=== PATIENT | female | born 1960 | race Caucasian/White ===

== ENCOUNTER 2017-09-29 12:50 | Emergency (ER) | payer OTHER ==
[~2017-09-29 12:50] MED LIST: ATIVAN1 MG PO; COL100 PO; NOR10T PO
[2017-09-29 14:08] LABS: BASOPHIL % 0.3 % (0-2); PLATELET COUNT 247 x10^3mcL (130-400)
[2017-09-29 14:12] LABS: RED CELL DISTRIBUTION WIDTH 15.2 % (11.5-14.5)
[2017-09-29 14:16] LABS: CALCIUM 9.7 mg/dL (8.5-10.1); CARBON DIOXIDE 32.9 mmol/L (21-32); CHLORIDE SERUM 104 mmol/L (98-107); CREATININE SERUM 0.6 mg/dL (0.6-1.0); GFR1 > 60 mL/min; GLUCOSE SERUM 83 mg/dL (74-106); POTASSIUM SERUM 3.8 mmol/L (3.5-5.1); SODIUM SERUM 140 mmol/L (136-145)
[2017-09-29 14:21] LABS: ALKALINE PHOSPHATASE 89 U/L (46-116); ALT/SGPT 39 U/L (14-59); AST/SGOT 78 U/L (15-37); BILIRUBIN TOTAL 0.3 mg/dL (0.20-1.00); CHOLESTEROL 160 mg/dL (<200); CHOLESTEROL/HDL RATIO 2.9; HDL CHOLESTEROL 55 mg/dL (40-60); LIPASE 131 IU/L (73-393); TOTAL PROTEIN, SERUM 7.3 g/dL (6.4-8.2); TRIGLYCERIDES 35 mg/dL (<150)
[2017-09-29 14:24] LABS: ALBUMIN 2.5 g/dL (3.4-5.0)
[2017-09-29 14:31] LABS: FREE T4 1.51 ng/dL (0.76-1.46); T3 TOTAL 1.46 ng/mL; T4(THYROXINE) 13.3 ug/dL (4.7-13.3)
[2017-09-29 15:35] LABS: microscopic required? YES; urine erythrocyte TRACE (NEGATIVE)
[2017-09-29 18:03] VITALS: BP 136/83
== END 2017-09-29 18:03 | disposition home or self-care (01) ==
LOC: ED 12:50
PROVIDERS: Specialist
DX: R06.02 Shortness of breath (principal); R91.8 Other nonspecific abnormal finding of lung field; Z85.3 Personal history of malignant neoplasm of breast
CPT/HCPCS: 36600; 83880; 84439; J7030; Q9967

== ENCOUNTER 2018-02-20 12:10 | Inpatient (IN) | payer OTHER ==
[~2018-02-20] VITALS: Ht 154.9 cm; Wt 50.1 kg
[2018-02-20 13:13] LABS: RED CELL DISTRIBUTION WIDTH 13.2 % (11.5-14.5)
[2018-02-20 13:17] LABS: PLATELET COUNT 24 x10^3mcL (130-400)
[2018-02-20 13:37] LABS: CALCIUM 9.1 mg/dL (8.5-10.1); CARBON DIOXIDE 29.2 mmol/L (21-32); CHLORIDE SERUM 99 mmol/L (98-107); CREATININE SERUM 0.5 mg/dL (0.6-1.0); GFR1 > 60 mL/min; GLUCOSE SERUM 142 mg/dL (74-106); POTASSIUM SERUM 3.6 mmol/L (3.5-5.1); SODIUM SERUM 131 mmol/L (136-145)
[2018-02-20 13:42] LABS: ALKALINE PHOSPHATASE 72 U/L (46-116); ALT/SGPT 119 U/L (14-59); AST/SGOT 72 U/L (15-37); BILIRUBIN TOTAL 0.2 mg/dL (0.20-1.00); TOTAL PROTEIN, SERUM 7.1 g/dL (6.4-8.2)
[2018-02-20 13:47] LABS: ALBUMIN 2.9 g/dL (3.4-5.0)
[2018-02-20 14:43] LABS: BAND NEUTROPHIL 0 % (0-10); BASOPHIL 0 % (0-2); MONOCYTE 6 % (0-7); SEGMENTED NEUTROPHILS 56 % (37-75)
[2018-02-20 14:44] LABS: rbc morphology (normal/abnorm) ABNORMAL (NORMAL)
[2018-02-20 15:41] LABS: MAGNESIUM 1.6 mg/dL (1.8-2.4); PHOSPHOROUS 4.2 mg/dL (2.5-4.9)
[2018-02-20 15:44] LABS: CHOLESTEROL/HDL RATIO 2.1
[2018-02-20 15:49] LABS: FREE T4 1.33 ng/dL (0.76-1.46); FREE THYROXINE INDEX 2.6 ug/dL (1.4-4.5)
[2018-02-20 16:44] VITALS: BP 111/67
[2018-02-20 16:48] VITALS: Ht 154.9 cm; Wt 50.1 kg
[2018-02-20 17:33] LABS: T3 TOTAL 1.42 ng/mL
[2018-02-20 21:03] VITALS: BP 90/56
[2018-02-21 06:02] VITALS: BP 101/63
[2018-02-21 06:04] LABS: RED CELL DISTRIBUTION WIDTH 12.7 % (11.5-14.5)
[2018-02-21 06:12] LABS: CALCIUM 8.3 mg/dL (8.5-10.1); CARBON DIOXIDE 29.5 mmol/L (21-32); CHLORIDE SERUM 104 mmol/L (98-107); CREATININE SERUM 0.5 mg/dL (0.6-1.0); GFR1 > 60 mL/min; GLUCOSE SERUM 93 mg/dL (74-106); MAGNESIUM 1.7 mg/dL (1.8-2.4); PHOSPHOROUS 3.8 mg/dL (2.5-4.9); POTASSIUM SERUM 4.2 mmol/L (3.5-5.1); SODIUM SERUM 138 mmol/L (136-145)
[2018-02-21 07:33] LABS: PLATELET COUNT 17 x10^3mcL (130-400)
[2018-02-21 09:58] LABS: BAND NEUTROPHIL 0 % (0-10); BASOPHIL 0 % (0-2); MONOCYTE 7 % (0-7); SEGMENTED NEUTROPHILS 50 % (37-75)
[2018-02-21 09:59] LABS: rbc morphology (normal/abnorm) ABNORMAL (NORMAL); tear drop cell (dacryocyte) 1+
[2018-02-21 10:02] LABS: RED BLOOD CELLS 3.02 M/mm3 (4.10-5.10)
[2018-02-21 10:38] VITALS: BP 94/57
[2018-02-21 10:39] LABS: microscopic required? NO
[2018-02-21 11:25] LABS: urine erythrocyte NEGATIVE (NEGATIVE)
[2018-02-21 11:40] LABS: AMPHETAMINE QUAL UR NONE DETECTED (NEG <=1000)
[2018-02-21 11:44] LABS: IRON 102 ug/dL (50-170); TOTAL IRON BINDING CAPACITY 260 ug/dL (250-450)
[2018-02-21 14:10] VITALS: BP 109/60
[2018-02-21 17:15] VITALS: BP 106/62
[2018-02-21 21:33] VITALS: BP 102/64
== END 2018-02-21 23:54 | disposition left against medical advice (07) | DRG 721 ==
LOC: ED 12:10 → DU 14:57
PROVIDERS: Emergency Medicine; Family Medicine
DX: T80.218A Other infection due to central venous catheter, initial encounter (principal); N17.0 Acute kidney failure with tubular necrosis; D61.810 Antineoplastic chemotherapy induced pancytopenia; E44.0 Moderate protein-calorie malnutrition; D69.59 Other secondary thrombocytopenia; E87.1 Hypo-osmolality and hyponatremia; E83.42 Hypomagnesemia; I10 Essential (primary) hypertension; L03.113 Cellulitis of right upper limb; C50.912 Malignant neoplasm of unspecified site of left female breast; F17.210 Nicotine dependence, cigarettes, uncomplicated; F41.9 Anxiety disorder, unspecified; Y83.8 Other surgical procedures as the cause of abnormal reaction of the patient, or of later complication, without mention of misadventure at the time of the procedure; R73.03 Prediabetes; Z83.49 Family history of other endocrine, nutritional and metabolic diseases; Z68.20 Body mass index [BMI] 20.0-20.9, adult; Y92.89 Other specified places as the place of occurrence of the external cause
CPT/HCPCS: 83880; 84439; 99406; J0295; J1644; J1956; J3475; J3490; J7030; Q0092; Q9967

== ENCOUNTER 2018-12-03 19:35 | Emergency (ER) | payer OTHER ==
[~2018-12-03] VITALS: Ht 154.9 cm; Wt 48.1 kg
[2018-12-03 20:05] VITALS: Ht 154.9 cm; Wt 48.1 kg
[2018-12-03 21:16] LABS: BASOPHIL % 0.1 % (0-2); PLATELET COUNT 186 x10^3mcL (130-400); RED CELL DISTRIBUTION WIDTH 18.9 % (11.5-14.5)
[2018-12-03 21:29] LABS: CALCIUM 8.8 mg/dL (8.5-10.1); CARBON DIOXIDE 29.2 mmol/L (21-32); CHLORIDE SERUM 99 mmol/L (98-107); CREATININE SERUM 0.6 mg/dL (0.6-1.0); GFR1 > 60 mL/min; GLUCOSE SERUM 164 mg/dL (74-106); POTASSIUM SERUM 3.8 mmol/L (3.5-5.1); SODIUM SERUM 131 mmol/L (136-145)
[2018-12-03 21:33] LABS: ALKALINE PHOSPHATASE 62 U/L (46-116); ALT/SGPT 23 U/L (14-59); AST/SGOT 57 U/L (15-37); BILIRUBIN TOTAL 0.4 mg/dL (0.20-1.00); TOTAL PROTEIN, SERUM 6.8 g/dL (6.4-8.2)
[2018-12-03 21:42] LABS: ALBUMIN 2.5 g/dL (3.4-5.0)
[2018-12-03 22:17] VITALS: BP 106/60
== END 2018-12-03 22:17 | disposition home or self-care (01) ==
LOC: ED 19:35
PROVIDERS: Emergency Medicine
DX: T45.1X5A Adverse effect of antineoplastic and immunosuppressive drugs, initial encounter (principal); Z85.3 Personal history of malignant neoplasm of breast; Z90.12 Acquired absence of left breast and nipple; Y92.89 Other specified places as the place of occurrence of the external cause
CPT/HCPCS: 36415

== ENCOUNTER 2019-05-17 11:23 | Inpatient (IN) | payer OTHER ==
[~2019-05-17] VITALS: Ht 152.4 cm; Wt 40.8 kg
--- NOTE | 2019-05-17 11:23 | NUR ---
RECEIVED PATIENT IN ROOM 5, VIA WHEELCHAIR, PULSELESS. PATIENT PUT IN BED, ON MONITOR, DR BEJARANO AT BEDSIDE, RT CALLED, TOOTH POLISHER AT BEDSIDE, ED RNS AT BEDSIDE. 1123: CPR INITIATED, VBM 1125: RIGHT AC 18 GAUGE INITIATED 1126: EPI X 1 GIVEN; NS FLUID WIDE OPEN 1127: HOLD CPR TO CHECK FOR PULSES - NO PULSE, B/P=55/14 1128: CPR RESUMED; ET INSERTED BY DR BEJARANO - SIZE = 10 1/2, LIPLINE = 21 1130: EPI X 1 (2ND) GIVEN, RIGHT AC; CONT CPR 1132: CHECK PULSES - PULSES PALPABLE 1134: SODIUM BICARB X 1 (50 ML) GIVEN, RIGHT AC; OS=544/76 NJ=892 REP= 12 1135: RECTAL NEJ=896.3 1139: 2ND IV INITIATED RIGHT FOREARM 20 GAUGE, LABS DRAWN 1145: VENT SETTING: AC 350. R=12 PEEP=5 81=160% 1145: MULTIPLE ATTEMPTS TO INSERT NGT/OGT BUT FAILED, NOT GOING INTO THE ESOPHAGUS/STOMACH AREA 1156: F/C SIZE 16 INSERTED, NO URINE RETURN 1205: CXR COMPLETED.
--- NOTE | 2019-05-17 11:34 | NUR ---
VS: P=168 R= 12 B/P=175/76 31=914% ON VENT: AC 350 R=12 PEEP=5 95=150%
[2019-05-17 11:45] VITALS: BP 175/76
--- NOTE | 2019-05-17 11:45 | NUR ---
VS: P=140 B/P 176/70 R=20 L1=121% ON VENT: AC 350 R=12 PEEP=5 62=951%
[2019-05-17 12:19] LABS: CARBON DIOXIDE 29.6 mmol/L (21-32); CHLORIDE SERUM 106 mmol/L (98-107); CREATININE SERUM 1.5 mg/dL (0.6-1.0); GFR1 38 mL/min; GLUCOSE SERUM 67 mg/dL (74-106); SODIUM SERUM 144 mmol/L (136-145)
[2019-05-17 12:23] LABS: ALKALINE PHOSPHATASE 46 U/L (46-116); ALT/SGPT 23 U/L (14-59); AST/SGOT 77 U/L (15-37); BILIRUBIN TOTAL 0.4 mg/dL (0.20-1.00)
[2019-05-17 12:24] LABS: ALBUMIN 2.3 g/dL (3.4-5.0); TOTAL PROTEIN, SERUM 5.9 g/dL (6.4-8.2)
[2019-05-17 12:34] LABS: PLATELET COUNT 122 x10^3mcL (130-400); RED CELL DISTRIBUTION WIDTH 18.1 % (11.5-14.5)
--- NOTE | 2019-05-17 12:46 | NUR ---
RECEIVED CRITICAL RESULTS FROM LAB, LACTIC ACID = 9.0, DR BEJARANO MADE AWARE. VS: P=140 R=25 B/P=82/46 H8=[address] BEJARANO MADE AWARE OF PATIENT'S BP.//FEB RN
--- NOTE | 2019-05-17 13:00 | NUR ---
VS: P=140 R=20 B/P=86/51 02= 100% ON VENT: AC 350 R=12 PEEP=5 69=996%
[2019-05-17 13:24] LABS: BAND NEUTROPHIL 9 % (0-10); MONOCYTE 2 % (0-7); SEGMENTED NEUTROPHILS 48 % (37-75); rbc morphology (normal/abnorm) ABNORMAL (NORMAL)
[2019-05-17 13:25] LABS: PLATELET MORPHOLOGY PLATELETS DECREASED
--- NOTE | 2019-05-17 13:25 | NUR ---
DR BEJARANO AT BEDSIDE, APPRISED OF PATIENT'S VS, NEW ORDER GIVEN FOR LEVOPHED, CHARGE NURSE CALLED PHARMACY FOR MED.//FEB RN
--- NOTE | 2019-05-17 13:28 | NUR ---
VS: P=135 R=22 B/P=73/49 02=97% ON VENT AC 350 R=12 RKCG=960=326%.
[2019-05-17 13:30] VITALS: BP 76/73
--- NOTE | 2019-05-17 14:05 | NUR ---
DR ROJAS AND DR MOSES ON UNIT AND TELEPHONED PATIENT'S SON EDNA ON SPEAKER CALL. PATIENT'S SON IS D.P.O.A. AND EXPRESSED THAT HIS MOTHER IS A DNR. EDNA STATED THAT HE SAW HIS MOTHER YESTERDAY AND THEY HAD THE CONVERSATION REGARDING HER WISHES. EDNA EXPRESSED TO DR ROJAS AND DR MOSES THAT HE WOULD LIKE TO WITHDRAWL CARE PER HER WISHES AND INITIATE COMFORT CARE. COPY OF PATIENT'S POLST DATED 03/18/19 WAS OBTAINED FROM PATIENT'S SIGNIFICANT OTHER AND PLACED IN CHART. DR DAGMAR ALTMAN IS MD THAT INITIATED THE POLST. PRIMARY RN YAHAIRA MADE AWARE.
--- NOTE | 2019-05-17 14:09 | NUR ---
REPORT GIVEN TO SHAUNA SYED FOR ICU 4. RT/ED EMT/SHAUNA WADE ENROUTE TO TRANSFER PATIENT TO ICU AT THIS TIME.//APR RN
--- NOTE | 2019-05-17 14:13 | NUR ---
RECIEVED PT VIA GUERANNIA ACCOMPANIED BY RN, RT, AND FITNESS CLUB MANAGER. PT INTUBATED WITH NO SEDATION. OBTUNDED. DOES NOT FOLLOW COMMANDS. DOES NOT RESPOND TO VERBAL, TACTILE, OR PAINFUL STIMULUS. PUPILS ARE 3MM AND FIXED BILATERALLY. L EYE IS INFLAMED AND SWOLLEN. NECK IS SWOLLEN. 10.5 ETT @ 21 LL. ETT TO VENT: VCV/AC MODE = 5 PEEP, 100% FIO2, 350 VT, 12 RATE. AGONAL BREATHING NOTED. POSTURING NOTED. DIM LUNG SOUNDS AUSCULTATED. SKIN IS WARM/DRY TO TOUCH TO BUE. L UPPER EXTREMITY IS SWOLLEN. SKIN IS COOL/DRY TO BLE. COLOR IS PALE TO BUE AND BLE. L MASTECTOMY NOTED. ABD IS SOFT AND FLAT. F/C INTACT AND DRAINING VIA GRAVITY. URINE IS IVAN IN COLOR WITH POOR OUTPUT. WILL RESUME CARE OF PT.
[2019-05-17 14:19] LABS: CHOLESTEROL/HDL RATIO 3.6; PHOSPHOROUS 6.3 mg/dL (2.5-4.9)
--- NOTE | 2019-05-17 14:20 | NUR ---
PER DR. ROJAS, PT TALKED TO THE SON REGARDING PT'S CODE STATUS AND PT'S SON STATED FOR HER TO BE PALLIATIVE CARE AND TO BE KEPT COMFORTABLE.
[2019-05-17 14:25] LABS: T3 TOTAL 0.67 ng/mL
[2019-05-17 14:28] VITALS: BP 96/67
[2019-05-17 14:29] LABS: FREE T4 1.17 ng/dL (0.76-1.46); FREE THYROXINE INDEX 2.3 ug/dL (1.4-4.5); T4(THYROXINE) 6.7 ug/dL (4.7-13.3)
[2019-05-17 15:00] VITALS: BP 96/67
[2019-05-17 15:06] LABS: AMPHETAMINE QUAL UR POSITIVE (See below)
--- NOTE | 2019-05-17 15:50 | NUR ---
MORPHINE GTT INITIATED @ 5MG/HR.
--- NOTE | 2019-05-17 16:00 | NUR ---
MAXIMILIANO RT AND OTHER RT AT BEDSIDE. PT EXTUBATED WITH NO COMPLICATIONS.
[2019-05-17 16:03] LABS: UA SPECIFIC GRAVITY >=1.030 (1.005-1.035); microscopic required? YES; urine erythrocyte 3+ (NEGATIVE)
--- NOTE | 2019-05-17 16:25 | NUR ---
[facility] CALLED AND INFORMATION GIVEN TO JOSE MANUEL AND STATES POSSIBLE PARTICIPANT FOR ORGAN/TISSUE DONATION. CASE #: [id number].
--- NOTE | 2019-05-17 16:30 | NUR ---
SPOKE WITH PATIENT'S SON REGAN FERRER AND INFORMED HIM THAT PATIENT AT 1616 AND EXPRESSED MY CONDOLENCES. REGAN EXPRESSED TO ME HE CONTACTED [facility] AND PATIENT MAY BE RELEASED TO [facility] ONCE CLEARED BY [facility]CH [facility]IDER. INFORMATION FOR PATIENT'S SON LISTED BELOW: REGAN FERRER, [id number], [place] [address] [facility] *ABILIO VILLATORO WITNESSED CONVERSATION VIA TELPHONE*
--- NOTE | 2019-05-17 16:30 | NUR ---
TELEPHONE NUMBER OF PATIENT'S SON REGAN FERRER: .
--- NOTE | 2019-05-17 16:46 | NUR ---
SPOKE WITH IT SUPPORT ENGINEER'S OFFICE AND AWAITING RETURN TELEPHONE CALL.
--- NOTE | 2019-05-17 17:25 | NUR ---
JOSE MANUEL FROM [facility] CALLED BACK AND STATES THAT THE PT IS NOT ELIGIBLE FOR TISSUE OR OGAN DONATION.
--- NOTE | 2019-05-17 19:10 | NUR ---
1616- PATIENT IN ASYSTOLE /T.O.D. PRONOUNCED BY DR MALIN 1618- ALLEY ODEN IN ADMITTING MADE AWARE 1621- COMPANY TRUCK DRIVER LADY NOTIFIED 1625- [facility] NOTIFIED AND RELEASED BODY CASE#[id number] COMPANY ACCOUNTANT HAS BEEN NOTIFIED AND WE ARE AWAITING COMPANY ACCOUNTANT TELEPHONE CALL BACK TO PROVIDE PATIENT INFORMATION. PATIENT ENDORSED TO MARIAH INIGUEZ RN
--- NOTE | 2019-05-17 21:41 | NUR ---
SB ASSOCIATE JULIETA CALLED BACK, SUMMARY OF HOSPITAL CARE PROVIDED, ALL QUESTIONS AND CONCERNS ADDRESSED. JULIETA STATES "I WILL CALL THE BOYFRIEND FIRST AND GET SOME INFORMTATION FROM HIM, THEN DETERMINE IF THIS WILL BE A CASE."
--- NOTE | 2019-05-17 22:02 | NUR ---
JULIETA FLYNN ( COMPUTER NUMERIC CONTROL SETTER) CALLED BACK. COMPUTER NUMERIC CONTROL SETTER STS THIS WILL BE A CORONERS CERTIFICATION CASE, HER BODY IS RELEASED, CASE WILL BE REVIEWED BY PRODUCT MANAGEMENT INTERNSHIP THROUGH MEDICAL RECORDS AND BLOOD VIALS DRAWN FROM ADMISSION. COMPUTER NUMERIC CONTROL SETTER TRANSFERRED TO LAB TO HOLD BLOOD VIALS. CONFIRMED WITH COMPUTER NUMERIC CONTROL SETTER IF WE ARE ABLE TO CLEAN AND TAKE OUT ALL TUBINGS AND LINES AT THIS TIME, COMPUTER NUMERIC CONTROL SETTER STATES YES HER BODY IS RELEASED. COMPUTER NUMERIC CONTROL SETTER CASE # [id number].
--- NOTE | 2019-05-17 22:30 | NUR ---
PTS BODY PICKED UP SECURITY AT THIS TIME.
--- NOTE | 2019-05-17 22:50 | NUR ---
PTS SON REGAN CALLED AND MADE AWARE REGARDING PTS SONY BEING RELEASED TO [facility] AT THIS TIME. ALL QUESTIONS AND CONCERNS ADDRESSED.
--- NOTE | 2019-05-17 22:57 | NUR ---
REGAN CALLED BACK AND MADE AWARE REGARDING PTS BELONGINGS WILL BE KEPT FOR PICKUP. REGAN STATES WILL BE IN TMRW TO CHART WRITER HER CLOTHING.
== END 2019-05-17 22:30 | disposition expired | DRG 720 ==
LOC: ED 11:23 → IC 12:51
PROVIDERS: Emergency Medicine; ADMIT Internal Medicine
PROC: 5A1935Z Respiratory Ventilation, Less than 24 Consecutive Hours (ICD-10-PCS; principal; 2019-05-17)
PROC: 0BH17EZ Insertion of Endotracheal Airway into Trachea, Via Natural or Artificial Opening (ICD-10-PCS; 2019-05-17)
DX: A41.9 Sepsis, unspecified organism (principal); I46.9 Cardiac arrest, cause unspecified; E43 Unspecified severe protein-calorie malnutrition; J96.00 Acute respiratory failure, unspecified whether with hypoxia or hypercapnia; R65.21 Severe sepsis with septic shock; N17.0 Acute kidney failure with tubular necrosis; D61.810 Antineoplastic chemotherapy induced pancytopenia; Z66 Do not resuscitate; E16.2 Hypoglycemia, unspecified; J44.9 Chronic obstructive pulmonary disease, unspecified; E83.39 Other disorders of phosphorus metabolism; F17.210 Nicotine dependence, cigarettes, uncomplicated; Z90.13 Acquired absence of bilateral breasts and nipples; Z85.3 Personal history of malignant neoplasm of breast; Z80.3 Family history of malignant neoplasm of breast; Z83.49 Family history of other endocrine, nutritional and metabolic diseases; Z68.1 Body mass index [BMI] 19.9 or less, adult
CPT/HCPCS: 31500; 82962; 83880; 84439; A4628; G0378; J2270; J2543; J3370; J3490; J7030; Q0092